=== PATIENT | female | born 1955 | race Caucasian/White ===

== ENCOUNTER 2018-08-30 09:28 | Day surgery (SDC) | payer BC ==
[2018-08-26 13:42] VITALS: BMI 31.6
[2018-08-30] MEDS ORDERED: MIDAZOLAM HCL 2 MG/2 ML SINGLE DOSE VIAL ONE (10:27)
--- NOTE | 2018-08-30 10:35 | HP ---
History & Physical Update - History History: No Change - Physical Physical: No Change - Assessment Assessment: No Change - Plan Plan: No Change (Patient seen and examined, H&P is consistent with 08/18/18 will proceed with Hysteroscopy,Polypectomy D&C Consent signed, all questions answered )
[2018-08-30] MEDS ORDERED: ONDANSETRON 4 MG/2 ML VIAL IVPUSH PRN (10:36)
[2018-08-30] MEDS ORDERED: oxyCODONE HCL 5 MG TABLET PO PRN (10:36)
[2018-08-30] MEDS ORDERED: IBUPROFEN 800 MG/8 ML IJ IVPB PRN (10:36)
[2018-08-30] MEDS ORDERED: IBUPROFEN 600 MG TABLET (FP) PO PRN (10:36)
--- NOTE | 2018-08-30 10:40 | OP ---
Operative Note - Note: Operative Date: 08/30/18 Pre-Operative Diagnosis: 62yo with thick endometrium, polyp on the Endometrium biopsy Operation: Hysteroscopy, polypectomy, D&C Findings: 1. Tree large polyps 2. Right cornua calcified fibroid Post-Operative Diagnosis: Same as Pre-op Surgeon: Hannah Gastelum Anesthesiologist/PUBLIC POLICY MANAGER: Mayo Valerio Anesthesia: MAC Estimated Blood Loss (mls): 0 Instrument used (Debridements only): Symphion by [employer] Drains & Tubes with Location: Fluid deficit 0cc Drains, Volume Out (mls): 500 Fluid Volume Replaced (mls): 400 Operative Report Dictated: Yes
[2018-08-30] MEDS ORDERED: DEXAMETHASONE SOD PHOSPHATE 4 MG/1 ML VIAL ONE (10:42)
[2018-08-30] MEDS ORDERED: LIDOCAINE HCL/PF 2% SDV 5ML VIAL ONE (10:42)
[2018-08-30] MEDS ORDERED: PROPOFOL 20 ML ONE (10:42)
[2018-08-30] MEDS ORDERED: ELECTROLYTE-148 SOLN 1,000 ML IV SCH (10:45)
[2018-08-30] MEDS ORDERED: ePHEDrine SULFATE 50 MG/1 ML AMPULE ONE (10:46)
[2018-08-30] MEDS ORDERED: LACTATED RINGERS SOLUTION 1,000 ML IV SCH (11:30)
[2018-08-30 12:45] VITALS: TEMP 97.3
--- NOTE | 2018-08-30 13:40 | OP ---
DATE OF OPERATION: 08/30/2018 PREOPERATIVE DIAGNOSES: A 62-year-old with thick endometrium, polyp on endometrial biopsy. OPERATION: Hysteroscopy, multiple polypectomy, dilatation and curettage. FINDINGS: Three large endometrial polyps and right cornual calcified fibroid. POSTOPERATIVE DIAGNOSES: A 62-year-old with thick endometrium, polyp on endometrial biopsy. SURGEON: Hannah Gastelum MD ANESTHESIOLOGIST: Mayo Valerio MD ANESTHESIA: MAC. DESCRIPTION OF OPERATIVE PROCEDURE: After ensuring informed consent, patient was brought to the operating room where she was placed in dorsal lithotomy position. Perineum and vagina were prepped and draped in sterile fashion. The Symphion hysteroscope was assembled, wide balanced, and primed. The Moran retractors were placed vaginally, and anterior cervical lip was articulated with single-tooth tenaculum. Cervix was dilated with gradually increasing dilators to accommodate 6.3-mm hysteroscope. Hysteroscope was inserted without any difficulty atraumatically. The above findings were visualized. Three large polyps were visualized inside the uterine cavity and 1 small cornual fibroid. The Symphion resectoscope was introduced through the port, and all polypoid tissue was removed without any difficulty. Uterine cavity was devoid of any additional tissue except for calcified small fibroid in the right cornua. All instruments were removed from cervix and vagina. Excellent hemostasis was noted. All instrument count was correct x2. Patient received 400 mL of IV fluids, drained 500 mL of urine. Estimated blood loss was 0. Fluid deficit was 0. Patient tolerated the procedure well and was brought to the recovery room in stable condition. Lonny NIELSEN/[id number]
[2018-08-30 15:13] VITALS: BP 111/60; PULSE 71
--- NOTE | 2018-08-31 16:17 | PATH ---
Surgical Pathology Report Patient Name: EDILSON STAFFORD [facility]. Rec. #: [id number] /Age/Gender: 1955 (Age: 62) / F Account: [id number] Location: [facility] SUR[facility]ICAL Taken: 08/30/2018 Received: 08/30/2018 Reported: 08/31/2018 Physicians: Hannah Gastelum M.D. Specimen(s) Received ENDOMETRIUM POLYP WITH FIBROID SHAVINGS Clinical History Endometrial polyp Final Diagnosis ENDOMETRIAL POLYPS WITH FIBROIDS SHAVINGS: ENDOMETRIAL POLYP. 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 SEPARATE UNREMARKABLE CERVICAL TISSUE PRESENT. Electronically Signed Manuel Fam M.D. Gross Description Received in formalin labeled "endometrial polyp with fibroid shavings," is a 3.7 x 3.2 x 0.4 cm aggregate of qiu-pink soft tissue fragments. The specimen is entirely submitted in 3 cassettes. /08/30/201808/30/2018
== END 2018-08-30 13:40 | disposition home or self-care (01) ==
LOC: JASU-SURG 09:28
PROVIDERS: ATTEND Obstetrics & Gynecology
PROC: 0UJD8ZZ Inspection of Uterus and Cervix, Via Natural or Artificial Opening Endoscopic (ICD-10-PCS; 2018-08-30)
PROC: 0UB97ZX Excision of Uterus, Via Natural or Artificial Opening, Diagnostic (ICD-10-PCS; principal; 2018-08-30 11:30)
PROC: 0UDB7ZX Extraction of Endometrium, Via Natural or Artificial Opening, Diagnostic (ICD-10-PCS; 2018-08-30 11:30)
DX: N84.0 Polyp of corpus uteri (principal); D25.9 Leiomyoma of uterus, unspecified
CPT/HCPCS: 86850; 86900; 86901; 88305-TC; 94760

== ENCOUNTER 2022-04-07 05:22 | Day surgery (SDC) | payer BC ==
[2022-04-02 19:57] VITALS: BMI 29.2
[2022-04-07] MEDS ORDERED: IBUPROFEN 800 MG/8 ML IJ IVPB PRN (11:55)
[2022-04-07] MEDS ORDERED: IBUPROFEN 600 MG TABLET (FP) PO PRN (11:55)
[2022-04-07] MEDS ORDERED: ONDANSETRON 4 MG/2 ML VIAL IVPUSH PRN ×2 (11:55→15:11)
[2022-04-07] MEDS ORDERED: oxyCODONE HCL 5 MG TABLET PO PRN ×3 (11:55→15:11)
[2022-04-07] MEDS ORDERED: ELECTROLYTE-148 SOLN 1,000 ML IV SCH (12:00)
[2022-04-07] MEDS ORDERED: LIDOCAINE HCL/PF 2% SDV 5ML VIAL ONE (13:43)
[2022-04-07] MEDS ORDERED: PROPOFOL 20 ML ONE (13:44)
[2022-04-07] MEDS ORDERED: MIDAZOLAM HCL 2 MG/2 ML SINGLE DOSE VIAL ONE ×2 (13:44→14:27)
[2022-04-07] MEDS ORDERED: DEXAMETHASONE SOD PHOSPHATE 4 MG/1 ML VIAL ONE (14:35)
[2022-04-07] MEDS ORDERED: ONDANSETRON 4 MG/2 ML VIAL ONE (14:35)
[2022-04-07] MEDS ORDERED: KETOROLAC TROMETHAMINE 30 MG/1 ML VIAL ONE (14:35)
[2022-04-07] MEDS ORDERED: PROMETHAZINE HCL 25 MG/1 ML VIAL IVPUSH PRN (15:11)
[2022-04-07] MEDS ORDERED: LACTATED RINGERS SOLUTION 1,000 ML IV SCH (15:15)
[2022-04-07 17:39] VITALS: RESP 18
[2022-04-07 18:12] VITALS: TEMP 97.9
[2022-04-07 18:45] VITALS: BP 119/72; PULSE 69
== END 2022-04-07 18:35 | disposition home or self-care (01) ==
LOC: JASU-SURG 05:22
PROVIDERS: ATTEND Obstetrics & Gynecology
PROC: 0UDB7ZX Extraction of Endometrium, Via Natural or Artificial Opening, Diagnostic (ICD-10-PCS; 2022-04-07)
PROC: 0UJD8ZZ Inspection of Uterus and Cervix, Via Natural or Artificial Opening Endoscopic (ICD-10-PCS; 2022-04-07)
PROC: 0UB98ZZ Excision of Uterus, Via Natural or Artificial Opening Endoscopic (ICD-10-PCS; principal; 2022-04-07 12:30)
DX: D25.9 Leiomyoma of uterus, unspecified (principal); N84.0 Polyp of corpus uteri; Z85.9 Personal history of malignant neoplasm, unspecified
CPT/HCPCS: 88305-TC; 94760